=== PATIENT | male | born 1990 | race African-American/Black ===

== ENCOUNTER 2024-01-24 16:17 | Emergency (ER) | payer MEDICAID ==
[~2024-01-24] VITALS: Ht 182.9 cm; Wt 90.0 kg
[2024-01-24 16:25] VITALS: O2SAT 100
[2024-01-24] MEDS ORDERED: KETOROLAC 15MG/ML VIAL IM ONE (16:45)
[2024-01-24] MEDS ORDERED: IBUP-2030 MT (19:03)
[2024-01-24] MEDS ORDERED: CYCL5TAB MT (19:03)
[2024-01-24 19:34] VITALS: BP 121/60; PULSE 77; RESP 20; TEMP 98
== END 2024-01-24 19:35 | disposition home or self-care (01) ==
LOC: ER 16:17
DX: S33.5XXA Sprain of ligaments of lumbar spine, initial encounter (principal); V49.49XA Driver injured in collision with other motor vehicles in traffic accident, initial encounter; Y93.89 Activity, other specified; Y92.89 Other specified places as the place of occurrence of the external cause; Y99.8 Other external cause status
CPT/HCPCS: 72100; 99283